=== PATIENT | female | born 1980 | race Caucasian/White ===

== ENCOUNTER → 2018-07-14 | Outpatient (CLI) | payer BC | LOC: COL.RAD 12:29 | DX: R19.09 Other intra-abdominal and pelvic swelling, mass and lump (principal) ==

== ENCOUNTER → 2020-09-30 | Outpatient (CLI) | payer BC | LOC: MC.RAD 14:17 | DX: Z12.31 Encounter for screening mammogram for malignant neoplasm of breast (principal) ==

== ENCOUNTER → 2021-11-07 | Outpatient (CLI) | payer BC | LOC: MC.RAD 08:49 | DX: Z12.31 Encounter for screening mammogram for malignant neoplasm of breast (principal) ==

== ENCOUNTER 2022-03-18 15:36 | Emergency (ER) | payer BC ==
[~2022-03-18] VITALS: Ht 175.3 cm; Wt 84.1 kg
[2022-03-18 15:40] VITALS: TEMP 97.9
[2022-03-18 18:21] VITALS: BP 103/65; PULSE 74
== END 2022-03-18 18:21 | disposition home or self-care (01) ==
LOC: COL.ER 15:36
DX: S43.401A Unspecified sprain of right shoulder joint, initial encounter (principal); W01.0XXA Fall on same level from slipping, tripping and stumbling without subsequent striking against object, initial encounter